=== PATIENT | female | born 1950 | race Caucasian/White ===

== ENCOUNTER 2016-12-29 19:55 | Inpatient (IN) | payer SELFPAY ==
[~2016-12-29] VITALS: Ht 172.7 cm; Wt 46.0 kg
[2016-12-29] MEDS ORDERED: ALBU8.5H8 IH (20:02)
[2016-12-29] MEDS ORDERED: DiphenhydrAMINE HCL 50 MG/ML VIAL IM ONE (20:15)
[2016-12-29] MEDS ORDERED: LORazepam 2 MG/ML VIAL IM ONE (20:15)
[2016-12-29] MEDS ORDERED: HALOPERIDOL LACTATE 5 MG/ML VIAL IM ONE (20:15)
[2016-12-29 20:17] LABS: BASOPHILS # (AUTO) 0.22 K/uL (0.00-0.20); BASOPHILS % (AUTO) 1.5 % (0.0-2.0); EOSINOPHILS # (AUTO) 0.18 K/uL (0.00-0.70); EOSINOPHILS % (AUTO) 1.23 % (1.0-6.0); HEMATOCRIT 40.6 % (36-46); HEMOGLOBIN 13.3 g/dL (12.0-16.0); LYMPHOCYTES # (AUTO) 2.4 K/uL (1.0-4.8); LYMPHOCYTES % (AUTO) 16.4 % (22.0-44.0); MEAN CORPUSCULAR HEMOGLOBIN 30.3 pg (26.0-34.0); MEAN CORPUSCULAR HGB CONC 32.9 G/dL (31.0-37.0); MEAN CORPUSCULAR VOLUME 92 fL (80-100); MONOCYTES # (AUTO) 0.6 K/uL (0.1-1.0); MONOCYTES % (AUTO) 4.5 % (2.0-9.0); NEUTROPHILS # (AUTO) 10.9 K/uL (1.8-7.7); NEUTROPHILS % (AUTO) 76.3 % (40.0-70.0); PLATELET COUNT (AUTO) 253 K/uL (150-450); RED BLOOD CELL COUNT(AUTO) 4.41 MIL/uL (4.00-5.20); RED CELL DISTRIBUTION WIDTH 14.3 % (11.5-14.5); WHITE BLOOD COUNT (AUTO) 14.3 K/uL (4.5-11.0)
[2016-12-29 20:29] LABS: ANION GAP 10 mmol/L (8-16); CALCIUM, TOTAL 8.9 mg/dL (8.8-10.5); CARBON DIOXIDE 28 mmol/L (22-29); CHLORIDE 106 mmol/L (98-107); CREATININE 0.85 mg/dL (0.60-1.30); GLOMERULAR FILTR. RATE CALC > 60 mL/min (>60); POTASSIUM 3.9 mmol/L (3.5-5.1); SODIUM SERUM 144 mmol/L (136-145); UREA NITROGEN, BLOOD 21 mg/dL (7-18)
[2016-12-29 20:31] LABS: ALBUMIN 3.8 g/dL (3.4-5.0)
[2016-12-29 20:46] LABS: ALANINE AMINOTRANSFERASE 62 U/L (12-78); ASPARTATE AMINOTRANSFERASE 41 U/L (15-37); BILIRUBIN,TOTAL 0.3 mg/dL (0.1-1.0); TOTAL PROTEIN, SERUM 7.4 g/dL (6.4-8.2)
[2016-12-29 21:26] LABS: THYROID STIMULATING HORMONE 7.08 uIU/mL (0.36-3.74)
[2016-12-29] MEDS ORDERED: HALOPERIDOL 5 MG TABLET PO PRN (21:30)
[2016-12-29] MEDS ORDERED: ZOLPIDEM TARTRATE 10 MG TABLET PO PRN (21:30)
[2016-12-29] MEDS ORDERED: LORazepam 2 MG TABLET PO PRN (21:30)
[2016-12-30 08:07] LABS: CHOL/HDL RATIO 2.8 (3.9-5.7)
[2016-12-30 11:11] VITALS: BP 116/72
[2016-12-30 17:34] VITALS: BP 135/86
[2016-12-30] MEDS ORDERED: ACETAMINOPHEN 325 MG TABLET PO PRN (17:45)
[2016-12-31] MEDS ORDERED: INFLUENZA VIRUS VACCINE QVS 2017-18 (3YR+)/PF 60 MCG/0.5 ML SYRINGE IM ONE (00:15)
[2016-12-31 07:16] VITALS: BP 120/78
[2016-12-31 08:22] VITALS: BP 144/93
[2016-12-31] MEDS: DULoxetine HCL 30 MG CAPSULE PO SCH ×2 (08:23→09:00)
[2016-12-31 10:30] VITALS: BP 140/86
[2016-12-31] MEDS ORDERED: ALBUTEROL SULFATE HFA 90 MCG/PUFF 8 GM INHALER IH PRN (16:00)
[2016-12-31] MEDS ORDERED: ACETAMINOPHEN 325 MG TABLET PO PRN (16:00)
[2016-12-31 16:19] VITALS: BP 133/75
[2017-01-01 06:33] VITALS: BP 134/61
[2017-01-01] MEDS: DULoxetine HCL 30 MG CAPSULE PO SCH (08:32)
[2017-01-01 08:39] VITALS: BP 123/52
[2017-01-01 08:44] LABS: BASOPHILS % (AUTO) 0.6 % (0.0-2.0); EOSINOPHILS % (AUTO) 1.7 % (1.0-6.0); HEMATOCRIT 45.6 % (36-46); HEMOGLOBIN 15.2 g/dL (12.0-16.0); LYMPHOCYTES # (AUTO) 2.1 K/uL (1.0-4.8); LYMPHOCYTES % (AUTO) 19.6 % (22.0-44.0); MEAN CORPUSCULAR HEMOGLOBIN 30.6 pg (26.0-34.0); MEAN CORPUSCULAR HGB CONC 33.3 G/dL (31.0-37.0); MEAN CORPUSCULAR VOLUME 92 fL (80-100); MONOCYTES # (AUTO) 0.7 K/uL (0.1-1.0); MONOCYTES % (AUTO) 6.2 % (2.0-9.0); NEUTROPHILS # (AUTO) 7.9 K/uL (1.8-7.7); NEUTROPHILS % (AUTO) 71.9 % (40.0-70.0); PLATELET COUNT (AUTO) 268 K/uL (150-450); RED BLOOD CELL COUNT(AUTO) 4.97 MIL/uL (4.00-5.20); RED CELL DISTRIBUTION WIDTH 14.4 % (11.5-14.5)
[2017-01-01 16:03] VITALS: BP 122/79
[2017-01-01] MEDS: IBUPROFEN 400 MG TABLET PO PRN (18:12)
[2017-01-02 07:04] VITALS: BP 131/79
[2017-01-02 07:30] VITALS: BP 134/72
[2017-01-02] MEDS: IBUPROFEN 400 MG TABLET PO PRN (07:40)
[2017-01-02] MEDS: DULoxetine HCL 30 MG CAPSULE PO SCH (08:03)
[2017-01-02 08:19] VITALS: BP 138/79
[2017-01-02] MEDS ORDERED: DULO30CA2 PO (10:28)
== END 2017-01-02 13:30 | disposition home or self-care (01) | DRG 885 ==
LOC: EMS 19:56 → AHU 12-30 09:35 → B3A 12-30 15:55
PROVIDERS: ADMIT Psychiatry & Neurology Child & Adolescent Psychiatry; ATTEND Psychiatry & Neurology Child & Adolescent Psychiatry
DX: F29 Unspecified psychosis not due to a substance or known physiological condition (principal); R45.851 Suicidal ideations; Z78.1 Physical restraint status; D64.9 Anemia, unspecified; J45.909 Unspecified asthma, uncomplicated; F10.10 Alcohol abuse, uncomplicated; D72.829 Elevated white blood cell count, unspecified; E78.5 Hyperlipidemia, unspecified; F41.9 Anxiety disorder, unspecified; E03.9 Hypothyroidism, unspecified; Z88.5 Allergy status to narcotic agent; Z79.899 Other long term (current) drug therapy; Z28.21 Immunization not carried out because of patient refusal
CPT/HCPCS: 84439; 84443; 90471; 96372; 99285; G0480; J1200; J1630; J2060